=== PATIENT | female | born 1985 | race Two or more races ===

== ENCOUNTER 2019-05-09 22:37 | Emergency (ER) | payer SELFPAY ==
[2019-05-09] MEDS ORDERED: Lidocaine 1% with EPINEPHrine 1:100,000 20 ML MDV ONE (23:06)
[2019-05-09] MEDS ORDERED: Diphtheria,Pertussis(Acell),Tetanus Vaccine 0.5 ML Syringe IM ONE (23:10)
[2019-05-09] MEDS ORDERED: Lidocaine 1% with EPINEPHrine 1:100,000 20 ML MDV INJECT ONE (23:17)
[2019-05-09] MEDS ORDERED: Bacitracin Oint 1 GM U/D Packet TOP ONE (23:25)
--- NOTE | 2019-05-09 23:25 | EDM.PDOC ---
ED HPI GENERAL MEDICAL PROBLEM - General Chief Complaint: Laceration Stated Complaint: LACERATION ON LT HAND Time Seen by Provider: 05/09/19 23:03 Source of Information: Reports: Patient History Limitations: Reports: No Limitations - History of Present Illness INITIAL COMMENTS - FREE TEXT/NARRATIVE: HISTORY OF PRESENT ILLNESS: Patient is a 34-year-old female with laceration. Patient was using a box coverer hand on her cats' litter box and it slipped resulting in laceration to her left hand. Denies any tensional self-harm. Tetanus is not up-to-date. Denies any weakness, numbness or tingling. Denies any other injury. Is not on blood thinners. No history of immunocompromise. REVIEW OF SYSTEMS: Other than the symptoms associated with the present events, the following is reported with regard to recent health: General: (-) fever. HENT: (-) congestion. Respiratory: (-) cough. Cardiovascular: (-) chest pain. GI: (-) abdominal pain. : (-) urinary complaints. Musculoskeletal: (-) other aches or pains. Endocrine: (-) generalized weakness. Neurological: (-) localized weakness. Skin: (+) laceration PAST MEDICAL HISTORY: reviewed as per nursing notes SOCIAL HISTORY: reviewed as per nursing notes, MEDICATIONS: Per nurse's note ALLERGIES: Per nurse's note, reviewed by me PHYSICAL EXAMINATION: GENERALIZED APPEARANCE: well developed, well nourished in mild distress VITAL SIGNS: Per nurse's note, reviewed by me SKIN: Warm, dry; (-) cyanosis; (+) ~5 cm laceration to left hand thenar eminence gaping and oozing. no pulsatile bleeding. HEAD: (-) scalp swelling, (-) tenderness. EYES: (-) conjunctival pallor, (-) scleral icterus. ENMT: (-) stridor; mucous membranes moist. NECK: (-) tenderness, (-) stiffness, CHEST AND RESPIRATORY: (-) rales, (-) rhonchi, (-) wheezes; breath sounds equal bilaterally. HEART AND CARDIOVASCULAR: (-) irregularity; (-) murmur, (-) gallop. EXTREMITIES: (-) deformity, (-) edema. no bony tenderness. 2+ radial pulses. cap refill < 2 sec. sensation intact. FROM. 5/5+ strength. NEURO AND PSYCH: Alert. Cranial nerves grossly intact; strength symmetric. gait steady. sensation intact. EMERGENCY DEPARTMENT COURSE AND TREATMENT: Patient's condition improved during Emergency Department evaluation. MDM: The patient presents with laceration, without evidence of significant foreign body, or neurovascular injury. Patient's wound was aseptically prepped and draped after the wound had received local wound care including irrigation. The wound was closed without incident and the patient tolerated the procedure well. The patient was advised of risk of scar and infection, and it was felt that the risk of infection was outweighed by the need to close this wound for hemostasis and cosmoses. The patient was given wound care precautions and understands to seek medical attention immediately if there are any signs of infection. Otherwise, the patient will follow up with the primary care provider in 1-2 days for wound check and 7 days for suture removal. PLAN AND FOLLOW-UP: Patient received written and verbal instructions regarding this condition. Return to ED immediately with any new or worsening symptoms. Follow up to be arranged by patient with pcp in 1-2 days for further evaluation. Given discharge precautions. Patient expressed verbal understanding. - Related Data Allergies Allergy/AdvReac Type Severity Reaction Status Date / Time No Known Allergies Allergy Verified 05/09/19 22:47 Home Meds: Home Meds . [No Known Home Meds] 05/09/19 [History] Past Medical History - Past Health History Medical/Surgical History: Denies Medical/Surgical History Psychiatric History: Reports: None - Infectious Disease History Infectious Disease History: Reports: Chicken Pox - Past Surgical History GI Surgical History: Reports: Cholecystectomy Social & Family History - Tobacco Use Smoking Status *Q: Never Smoker - Recreational Drug Use Recreational Drug Use: No ED ROS GENERAL - Review of Systems Review Of Systems: See Below (see dictation) ED EXAM, SKIN/RASH Exam: See Below (see dictation) ED SKIN PROCEDURES - Laceration/Wound Repair Left Hand Appearance: Linear Distal NVT: Neuro & Vascular Intact, No Tendon Injury Anesthetic Type: Local Local Anesthesia - Lidocaine (Xylocaine): 1% with EPI Local Anesthetic Volume: 5cc Skin Prep: Providone-Iodine (Betadine) Exploration/Debridement/Repair: Wound Explored, No Foreign Material Found Closed with: Sutures Lac/Wound length In cm: 5 Suture Size: 4-0 # of Sutures: 6 Suture Type: Prolene Course - Vital Signs Last Recorded V/S: Last Vital Signs Temp 98 F 05/09/19 23:34 Pulse 71 05/09/19 23:34 Resp 16 05/09/19 23:34 BP 127/82 05/09/19 23:34 Pulse Ox 98 05/09/19 23:34 - Orders/Labs/Meds Orders: Active Orders 24 hr Category Date Time Status Vaccines to be Administered [RC] PER UNIT ROUTINE Care 05/09/19 23:10 Active Meds: Medications Discontinued Medications Generic Name Dose Route Start Last Admin Trade Name Ruiz PRN Reason Stop Dose Admin Bacitracin 1 dose 05/09/19 23:25 05/09/19 23:28 Bacitracin Oint 1 Gm TOP 05/09/19 23:26 1 dose ONETIME ONE Administration Diphtheria/Tetanus/Acell Pertussis 0.5 ml 05/09/19 23:10 05/09/19 23:16 Adacel IM 05/09/19 23:11 0.5 ml .ONCE ONE Administration Lidocaine/Epinephrine Confirm 05/09/19 23:06 05/09/19 23:18 Xylocaine 1% With Epinephrine 1:100,000 Administered 05/09/19 23:07 Not Given Dose 20 ml .ROUTE .STK-MED ONE Lidocaine/Epinephrine 20 ml 05/09/19 23:17 05/09/19 23:19 Xylocaine 1% With Epinephrine 1:100,000 INJECT 05/09/19 23:18 20 ml ONETIME ONE Administration Departure - Departure Time of Disposition: 23:24 Disposition: Home, Self-Care 01 Condition: Good Clinical Impression: Laceration - Discharge Information *PRESCRIPTION DRUG MONITORING PROGRAM REVIEWED*: Not Applicable *COPY OF PRESCRIPTION DRUG MONITORING REPORT IN PATIENT EVELINA: Not Applicable Instructions: Laceration Care, Adult, [id number] Referrals: Scottie Orr [Ordering Only Provider] - 2 Days Forms: ED Department Discharge Additional Instructions: The following information is given to patients seen in the emergency department who are being discharged to home. This information is to outline your options for follow-up care. We provide all patients seen in our emergency department with a follow-up referral. The need for follow-up, as well as the timing and circumstances, are variable depending upon the specifics of your emergency department visit. If you don't have a primary care physician on staff, we will provide you with a referral. We always advise you to contact your personal physician following an emergency department visit to inform them of the circumstance of the visit and for follow-up with them and/or the need for any referrals to a consulting specialist. The emergency department will also refer you to a specialist when appropriate. This referral assures that you have the opportunity for follow-up care with a specialist. All of these measure are taken in an effort to provide you with optimal care, which includes your follow-up. Under all circumstances we always encourage you to contact your private physician who remains a resource for coordinating your care. When calling for follow-up care, please make the office aware that this follow-up is from your recent emergency room visit. If for any reason you are refused follow-up, please contact the [facility] Emergency Department at and asked to speak to the emergency department charge nurse. Sepsis Event Note - Evaluation Sepsis Screening Result: No Definite Risk - Focused Exam Vital Signs: Vital Signs Temp Pulse Resp BP Pulse Ox 05/09/19 23:34 98 F 71 16 127/82 98 05/09/19 22:45 97.6 F 67 18 149/91 H 98 Date Exam was Performed: 05/10/19 Time Exam was Performed: 02:15 - My Orders Last 24 Hours: My Active Orders 05/09/19 23:10 Vaccines to be Administered [RC] PER UNIT ROUTINE - Assessment/Plan Last 24 Hours: My Active Orders 05/09/19 23:10 Vaccines to be Administered [RC] PER UNIT ROUTINE
== END 2019-05-09 23:43 | disposition home or self-care (01) ==
LOC: MW.ED 22:37
DX: S61.412A Laceration without foreign body of left hand, initial encounter (principal); Z23 Encounter for immunization; W26.8XXA Contact with other sharp object(s), not elsewhere classified, initial encounter
CPT/HCPCS: 12002; 90471; 90715; 99282-25; 99283

== ENCOUNTER 2022-02-03 08:42 | Emergency (ER) | payer BC ==
[2022-02-03] MEDS: Lidocaine 1% with EPINEPHrine 1:100,000 10 ML MDV INJECT ONE (09:14)
[2022-02-03] MEDS: Lidocaine 1% with EPINEPHrine 1:100,000 50 ML MDV ONE (09:15)
== END 2022-02-03 10:50 | disposition home or self-care (01) ==
LOC: MW.ED 08:42
DX: S81.812A Laceration without foreign body, left lower leg, initial encounter (principal); W25.XXXA Contact with sharp glass, initial encounter
CPT/HCPCS: 12002; 73590-26-LT; 73590-LT; 99282; 99283

== ENCOUNTER 2023-08-17 15:05 | Emergency (ER) | payer BC ==
[2023-08-17] MEDS ORDERED: Acetaminophen 325 MG Tab PO ONE (15:38)
[2023-08-17] MEDS: Acetaminophen 500 MG Tab PO ONE (16:11)
[2023-08-17] MEDS: Lidocaine/Epineph/Tetracaine 3 ML Syringe TOP ONE (16:21)
== END 2023-08-17 18:38 | disposition home or self-care (01) ==
LOC: MW.ED 15:05
DX: S01.01XA Laceration without foreign body of scalp, initial encounter (principal); S50.311A Abrasion of right elbow, initial encounter; S89.91XA Unspecified injury of right lower leg, initial encounter; Z75.8 Other problems related to medical facilities and other health care; W08.XXXA Fall from other furniture, initial encounter; Z90.49 Acquired absence of other specified parts of digestive tract
CPT/HCPCS: 12001; 73080; 73560; 73590; 99283; A9270

== ENCOUNTER 2023-08-27 13:39 | Emergency (ER) | payer BC | END 2023-08-27 14:04 | disposition home or self-care (01) | LOC: MW.ED 13:39 | DX: Z48.02 Encounter for removal of sutures (principal) | CPT/HCPCS: 99281 ==

== ENCOUNTER 2023-12-10 08:50 | Day surgery (SDC) | payer BC ==
[~2023-12-10 08:50] MED LIST: Albuterol 0.083% 2.5 MG/3 ML Neb Soln NEB PRN; HYDROmorphone 1 MG/ML Syringe IVPUSH PRN; Metoclopramide 10 MG/2 ML SDV IVPUSH PRN; Morphine 2 MG/ML SYRINGE IVPUSH PRN; Naloxone 0.4 MG/ML SDV IVPUSH PRN; Ondansetron 4 MG/2 ML SDV IVPUSH PRN; ceFAZolin 2 GM in Sodium Chloride 0.9% 50 ML IV ONE; droPERidol 5 MG/2 ML SDV IVPUSH PRN; fentaNYL 50 MCG/ML SDV IVPUSH PRN
[2023-12-10] MEDS: Lactated Ringers 1,000 ML IV SCH (09:13)
[2023-12-10] MEDS ORDERED: Ropivacaine 0.5% 5 MG/ML 30 ML SDV ONE (09:22)
[2023-12-10] MEDS ORDERED: Lidocaine 2% 11 ML Jelly Filled Syringe ONE (09:24)
[2023-12-10] MEDS ORDERED: Propofol 200 MG/20 ML SDV ONE (09:24)
[2023-12-10] MEDS ORDERED: fentaNYL 100 MCG/2 ML SDV ONE (09:24)
[2023-12-10] MEDS ORDERED: Ketorolac 30 MG/ML SDV ONE (09:24)
[2023-12-10] MEDS ORDERED: Dexamethasone 4 MG/ML 5 ML MDV ONE (09:24)
[2023-12-10] MEDS ORDERED: Ondansetron 4 MG/2 ML SDV ONE ×2 (09:24→12:03)
[2023-12-10] MEDS ORDERED: dexmedeTOMIDine HCl 200 MCG/2 ML SDV ONE (09:25)
[2023-12-10] MEDS ORDERED: Water For Injection, Sterile 20 ML ONE (09:25)
[2023-12-10] MEDS ORDERED: Bupivacaine 0.5%/EPINEPHrine 1:200,000 30 ML SDV ONE (09:42)
[2023-12-10] MEDS ORDERED: Ketamine HCL/NACL, ISO-OSM 50 MG/5 ML Syringe ONE (10:30)
[2023-12-10] MEDS ORDERED: ceFAZolin 1 GM Vial ONE (10:37)
== END 2023-12-10 13:50 | disposition home or self-care (01) ==
LOC: MW.SDS 08:50
PROVIDERS: ATTEND Orthopaedic Surgery
DX: S83.511A Sprain of anterior cruciate ligament of right knee, initial encounter (principal); S83.281A Other tear of lateral meniscus, current injury, right knee, initial encounter; F17.290 Nicotine dependence, other tobacco product, uncomplicated; X58.XXXA Exposure to other specified factors, initial encounter
CPT/HCPCS: 29881; 29888; 81025; A9270; C1713; J0690; J1100; J1885; J2405; J2704; J2795; J3010; J7120; J3490